=== PATIENT | female | born 1945 | race Hispanic/Latino ===

== ENCOUNTER 2024-10-11 16:17 | Emergency (ER) | payer OTHER, MEDICARE ==
[~2024-10-11] VITALS: Ht 154.9 cm; Wt 79.8 kg
--- NOTE | 2024-10-11 16:48 | HMCIMG ---
CHEST 1VW REASON: cough/congestion x3 days r/o pna COMPARISON: None. FINDINGS: Single view of the chest was obtained. Lungs are clear. Heart size is normal. There is no pulmonary vascular congestion. Mediastinum and bony thorax appear unremarkable. IMPRESSION: 1. Normal single view chest x-ray.
[2024-10-11 16:54] LABS: SARS-CoV-2, RNA, NAAT NEGATIVE SARS CoV-2 (NEGATIVE)
[2024-10-11 17:00] LABS: RAPID GROUP A STREP negative (NEGATIVE)
[2024-10-11 17:10] LABS: INFLUENZA TYPE A Negative For Type A (NEGATIVE); INFLUENZA TYPE B Negative For Type B (NEGATIVE)
[2024-10-11] MEDS ORDERED: METH4TAB3 PO (17:32)
[2024-10-11] MEDS ORDERED: AZIT250T9 PO (17:32)
[2024-10-11] MEDS ORDERED: BENZ-39 PO (17:32)
--- NOTE | 2024-10-11 17:32 | ERN ---
General Chief Complaint: Cough Stated Complaint: COUGH, CONGESTION Time Seen by MD: 16:19 Time Seen by Midlevel: 16:19 Source: patient History of Present Illness Initial Comments Patient is an 78-year-old female presenting to the emergency department with a cough that has been ongoing for the last three days. started with the same symptoms three weeks ago. No fever, chills, or any other symptoms reported at this time. Allergies: Coded Allergies: No Known Allergies (Unverified Allergy, Unknown, 10/11/24) Home Meds Active Scripts Benzonatate (Tessalon Perles) 100 Mg Cap, 100 MG PO TID for cough for 10 Days, #30 CAP 0 Refills Prov:ALISSA STANTON 10/11/24 Methylprednisolone (Medrol) 4 Mg Tab.ds.pk, 1 TAB PO AD for 6 Days, #21 TAB 0 Refills 6 on day 1 then reduce by one tablet daily until gone Prov:ALISSA STANTON 10/11/24 Azithromycin (Azithromycin) 250 Mg Tablet, 1 TAB PO AD for 5 Days, #6 TAB 0 Refills 2 the first day followed by 1 for days 2-5 Prov:ALISSA STANTON 10/11/24 Past Medical History Past Medical History: No Pertinent History Past Surgical History: None ROS Dictation CONSTITUTIONAL: Negative except for HPI HEAD/FACE: Negative except for HPI EENT: Negative except for HPI RESPIRATORY: Negative except for HPI GASTROINTESTINAL/ABDOMINAL: Negative except for HPI GENITOURINARY: Negative except for HPI MUSCULOSKELETAL: Negative except for HPI INTEGUMENTARY: Negative except for HPI NEUROLOGICAL/PSYCH: Negative except for HPI HEMATOLOGIC/LYMPHATIC: Negative except for HPI All Systems Negative, Except as noted above. 13 point review of systems assessed and all negative except for above. Physical Exam Physical Exam Dictation Vital Signs reviewed General Appearance: Alert, oriented x 3, no acute distress, well developed, nourished. Head and Face: non-traumatic. Eyes: PERRL, pink conjunctivas, eyelid no trauma, anterior chamber with arcus senilis. Ears: Pinnas intact and no signs of trauma or erythema ear canals clear and no discharge TM no erythema Nose: No discharge, no bleeding. Oropharynx: Mouth normal, tongue pink, pharynx clear,no erythema, tonsils no exudates, no abscesses noted, mucous membrane moist Neck: Supple, non-tender, no thyromegaly, no masses, no JVD, no bruits Breast:Deferred Chest:No tenderness, no crepitus, no paradoxical movement, no retractions Lungs:Clear, well-ventilated, symmetric, no rales, no wheezing, no rhonchi, no stridor, good breath sounds bilaterally Heart: Regular rate, regular rhythm, no murmur, no gallops Vascular: no peripheral edema, Abdomen: Soft, positive bowel sounds, nondistended, no guarding, nontender, no rebound, no masses no hepatomegaly, no splenomegaly, no Breaux's sign, no hernias. Rectal: Deferred Genital: Deferred Neurological: Normal speech, motor function intact, sensory function intact Musculoskeletal: Neck nontender, full range of motion, back nontender, full range of motion, Extremities: nontender, full range of motion Skin: Color pink, dry, no turgor, no rash, no lacerations, no abrasions, no contusions. Lymphatic: Deferred Results Laboratory and Microbiology Lab and Micro Result Laboratory Tests Test 10/11/24 16:23 Influenza Type A Antigen Negative For Type A Influenza Type B Antigen Negative For Type B SARS-CoV-2, RNA, NAAT NEGATIVE SARS CoV-2 Group A Streptococcus Rapid negative (NEGATIVE) Labs Reviewed?: Yes MDM MDM: Patient is an 78-year-old male presenting to the emergency department with a cough that has been ongoing for the last three days. started with the same symptoms three weeks ago. No fever, chills, or any other symptoms reported at this time. On physical examination patient is in no acute respiratory distress. There is a dry cough during my examination however lung examination is unremarkable. There was no wheezing, rhonchi, or rales. Chest x-ray does not show any evidence of pneumonia. Respiratory swabs are negative. Patient will be discharged home with supportive management. Differential diagnosis: Pneumonia, bronchitis, pulmonary edema, viral syndrome, upper respiratory infection There are no social concerns with this patient. Prescription drug management Prescriptions will include: Tessalon Perles, Medrol pack, and azithromycin Medical management and examination interpretation discussions were had by me with other qualified healthcare professionals as indicated for the patient's care. ED Course Orders Procedure Category Date Status Time Covid Rna Naat LAB 10/11/24 Complete 16:22 Influenza Type A & B, LAB 10/11/24 Complete Rapid 16:22 Rapid (Group A Strep) LAB 10/11/24 Complete 16:22 Chest 1vw RAD 10/11/24 Resulted 16:22 Vital Signs Date Time Temp Pulse Resp B/P (MAP) Pulse Ox O2 Delivery O2 Flow Rate FiO2 10/11/24 17:52 100.0 51 16 140/70 98 Room Air* 0 21 10/11/24 16:18 100.0 51 16 146/78 98 Room Air 0 DX & DISP Disposition: Discharge Departure Impression: Primary Impression: Pneumonitis Condition: Stable Scripts Benzonatate (Tessalon Perles) 100 Mg Cap 100 MG PO TID for cough for 10 Days, #30 CAP 0 Refills Prov: ALISSA STANTON 10/11/24 Methylprednisolone (Medrol) 4 Mg Tab.ds.pk 1 TAB PO AD for 6 Days, #21 TAB 0 Refills 6 on day 1 then reduce by one tablet daily until gone Prov: ALISSA STANTON 10/11/24 Azithromycin (Azithromycin) 250 Mg Tablet 1 TAB PO AD for 5 Days, #6 TAB 0 Refills 2 the first day followed by 1 for days 2-5 Prov: ALISSA STANTON 10/11/24 Additional Instructions: You have tested negative for influenza a, influenza B, COVID-19, and strep. Your chest x-ray does not show any evidence of pneumonia. I have given you prescriptions for outpatient management. Follow up with your primary care doctor in 2-3 days for repeat evaluation. Return to the ER for any new or worsening symptoms Time of Disposition: 17:31 I have reviewed the case, and I agree with, Diagnosis and Plan I performed the substantive portion of the visit. I have reviewed and personally made and approve the management plan that is documented in the note by myself or the LESLY. I acknowledge for responsibility for the patient's management plan. ALISSA STANTON Oct 11, 2024 17:32
[2024-10-11 17:52] VITALS: BP 140/70; PULSE 51; RESP 16; TEMP 100; O2SAT 98
== END 2024-10-11 18:19 | disposition home or self-care (01) ==
LOC: EDH 16:17
DX: J98.4 Other disorders of lung (principal); Z20.822 Contact with and (suspected) exposure to COVID-19; Z79.899 Other long term (current) drug therapy
CPT/HCPCS: 71045; 87635; 87804; 87880; 99284